=== PATIENT | male | born 1990 | race Caucasian/White ===

== ENCOUNTER 2023-01-27 00:10 | Emergency (ER) | payer MEDICAID ==
[~2023-01-27] VITALS: Ht 175.3 cm; Wt 90.7 kg
[2023-01-27 00:29] VITALS: BP 153/103; PULSE 75; RESP 20; TEMP 97.2; O2SAT 96
--- NOTE | 2023-01-27 00:29 | NUR ---
PT WENT TO THE LOBBY
--- NOTE | 2023-01-27 03:05 | NUR ---
PT WENT TO BED 12
--- NOTE | 2023-01-27 03:10 | NUR ---
MOTHER AT THE BEDSIDE
[2023-01-27] MEDS ORDERED: DOCU-299 PO (03:51)
[2023-01-27] MEDS ORDERED: PHEN26CR2 RC (03:51)
--- NOTE | 2023-01-27 03:54 | NUR ---
DR EXAMINING THE PATIENT
[2023-01-27 04:03] VITALS: BP 153/103; PULSE 75; RESP 20; TEMP 97.2; O2SAT 96
--- NOTE | 2023-01-27 04:12 | NUR ---
Patient discharged with v/s stable. Written and verbal after care instructions given and explained. Patient alert, oriented and verbalized understanding of instructions. Ambulatory with by parent. All questions addressed prior to discharge. ID band removed. Patient advised to follow up with PMD. Rx of DOCUSATE, PREPARATION H given. Patient educated on indication of medication including possible reaction and side effects. Opportunity to ask questions provided and answered.
== END 2023-01-27 04:12 | disposition home or self-care (01) ==
LOC: MED 00:10
DX: K64.4 Residual hemorrhoidal skin tags (principal); K92.1 Melena; Z79.899 Other long term (current) drug therapy
CPT/HCPCS: 99282